=== PATIENT | female | born 1965 | race Caucasian/White ===

== ENCOUNTER → 2017-03-20 | Day surgery (SDC) | payer BC ==
[~2017-03-20] VITALS: Ht 165.1 cm; Wt 102.1 kg
[~2017-03-20] MED LIST: BACITRACIN PWD 50,000 UNITS VIAL As Ordered ONE; BENI20TA18 PO; BUPIVACAINE HCL 0.5% 30 ML VIAL As Ordered ONE; HYDROmorphone HCL 1 MG/ML SYRINGE (J1170) IV PRN; LIDO5TD TD; LIDOCAINE 1% SDV 5 ML VIAL SQ ONE; LIDOCAINE 2% INJ 100 MG/5 ML SDV (FOR ANES.) As Ordered ONE; LIDOCAINE 2% MDV 20 ML VIAL As Ordered ONE; LIPI20TA PO; LR 1,000 ML IV ONE; LR 1,000 ML IV SCH; METO-346 PO; MIDAZOLAM INJ 2 MG/2 ML VIAL (J2250) As Ordered ONE; NEOSPORIN GU IRRIG 20 ML VIAL As Ordered ONE; ONDANSETRON 4MG/2ML VIAL (J2405) As Ordered ONE; ONDANSETRON 4MG/2ML VIAL (J2405) IV PRN; PERCOCET 5MG/325MG TAB As Ordered ONE; PERCOCET 5MG/325MG TAB PO PRN; PROPOFOL 200 MG/20 ML VIAL As Ordered ONE; PROT1TAB2 PO; TIZA4CAP3 PO; dexameTHASONE 4 MG/ML 1ML VIAL (J1100) As Ordered ONE; fentaNYL 100 MCG/2 ML INJECTION (J3010) As Ordered ONE; fentaNYL 100 MCG/2 ML INJECTION (J3010) IV PRN
--- NOTE | 2017-03-20 13:31 | REP ---
Clinical: Postoperative baseline assessment. Technique: AP, lateral, oblique views of the right foot. Findings: Postoperative fixation noted at the first tarsometatarsal joint. Overlying postsurgical changes noted. Impression: Status post fixation at the first tarsometatarsal joint. Signed by Keenan Davidson MD 03/20/2017 01:23 P
[2017-03-20 13:50] VITALS: BP 122/60
--- NOTE | 2017-03-21 08:04 | RO ---
DATE OF PROCEDURE: 03/20/2017 PREPROCEDURE DIAGNOSIS: Hallux valgus deformity right foot. POSTPROCEDURE DIAGNOSIS: Hallux valgus deformity right foot. PROCEDURE: Lapidus bunionectomy with screw and plate fixation. SURGEON: Ty Linder DPM MASTER FIRE CONTROL TECHNICIAN: None. ANESTHESIA: Local MAC. IRRIGATION: Dilute bacitracin, neomycin and polymyxin B solution. IMPLANTS: Progenics putty 0.5 mL of demineralized bone matrix and plate and screw fixation, a Munoz Lapidus size 0 plate with nonlocking screw configuration 3.5 x 16, 18, 20 and 22 mm and a compression screw 3.5 x 40 mm. HEMOSTASIS: Ankle pneumatic tourniquet at 250 mmHg for 72 minutes. DESCRIPTION OF OPERATION: On 03/20/2017, this 51-year-old white female was taken from her hospital room to the operating room and placed on the operating room table in the supine position. Following the induction of IV sedation and local and regional anesthesia, the right lower extremity was prepped and draped in the usual aseptic manner. Ankle pneumatic tourniquet was rapidly inflated and the right lower extremity was returned to the operating table, sterile draping was completed and the following procedure was performed: LAPIDUS BUNIONECTOMY WITH PLATE AND SCREW FIXATION RIGHT FOOT: Attention was directed to the patient's right foot where there was noted to be a hallux valgus deformity. At this time, an incision was made just proximal to the first metatarsal cuneiform joint to just distal to the first metatarsal phalangeal joint dorsally and medial to the extensor tendon. The incision was deepened through subcutaneous tissues and all coursing venous tributaries were identified, underscored, clamped, cut, ligated and electrocoagulated as necessary. A linear capsulotomy was performed over the first metatarsal phalangeal joint of the right foot and the capsule and periosteal type envelope was created over the first metatarsal phalangeal joint. The medial eminence was osteotomized from distal to proximal through and through. Attention was directed into first intermetatarsal space where dissection was carried to release the conjoined tendon off the fibular sesamoid. Attention was then directed to the base of the first metatarsal where a wedged shaped piece of bone was removed from the first metatarsal cuneiform joint in two planes, one the wedge was directed in a lateral direction to decrease the intermetatarsal angle and in a plantar direction to plantar flex the first metatarsal segment. This wedge of bone was then removed from the joint surface. The bone was then fenestrated with a #2-0 drill bit and 0.5 mL of demineralized bone matrix was then placed at the fusion site. The fusion site was temporarily fixated with a 1.1 K-wire. Intraoperative C-arm images revealed a good reduction of the intermetatarsal angle and good position at the fusion site. A compression screw was then placed 3.5 x 40 mm across the fusion site with good compression at the site and good reduction of the intermetatarsal angle. The medial LPS size 0 plate was then placed and four fixation screws were added to the plate after the plate was contoured, 3.5 x 16, 18, 20 and 22 mm. Stable construct was noted. The wound was flushed with copious amounts of dilute bacitracin, neomycin and polymyxin B solution. Attention was then directed towards closure where the periosteal and capsular structures were coapted and maintained utilizing #2-0 Monocryl in a simple interrupted type fashion. Subcutaneous tissue coapted and maintained utilizing #4-0 Monocryl in a simple interrupted type fashion. Skin incision coapted and maintained utilizing #4-0 Prolene in a simple interrupted and horizontal mattress type fashion. Following the completion of the surgical procedure, 4 mg of dexamethasone sodium phosphate was instilled into the first intermetatarsal space. Attention was directed towards bandaging where a sterile compressive bandage was applied consisting of Adaptic, 4x4s, 4x4 splints, Edwar, Kerlix, Epstein compression dressing and a posterior splint. The ankle pneumatic tourniquet was then rapidly deflated and instantaneous capillary filling time was noted to digits of 1 through 5 of the patient's right foot. The patient having apparently tolerated the surgical procedure well was taken from the operating room (OR) to the recovery room with vital signs stable and the patient afebrile for further monitoring by the anesthesia department. All surgical specimens removed during the operative procedure were sent to pathology for gross and microscopic examination. Postoperative instructions will be given upon discharge.
== END ==
LOC: M SDC 08:43
PROVIDERS: ATTEND Podiatrist
DX: M20.11 Hallux valgus (acquired), right foot (principal); M79.671 Pain in right foot; I10 Essential (primary) hypertension; K21.9 Gastro-esophageal reflux disease without esophagitis; M51.9 Unspecified thoracic, thoracolumbar and lumbosacral intervertebral disc disorder; E78.5 Hyperlipidemia, unspecified; G47.00 Insomnia, unspecified; G56.31 Lesion of radial nerve, right upper limb; Z79.899 Other long term (current) drug therapy; Z88.8 Allergy status to other drugs, medicaments and biological substances
CPT/HCPCS: 28297; 73630; 88300; 97116; C1776; J0690; J1100; J2250; J2405; J3010

== ENCOUNTER 2018-02-27 07:19 | Day surgery (SDC) | payer MEDICARE, OTHER ==
[2018-02-27] MEDS: LR 1,000 ML IV ×2 (08:20)
[2018-02-27 08:25] LABS: CONTROL LINE HCG INT CTR LINE PRESENT; HCG, SERUM QUALITATIVE NEGATIVE (NEGATIVE)
[2018-02-27] MEDS: BUPIVACAINE HCL 0.5% 30 ML VIAL As Ordered ×2 (09:09)
[2018-02-27] MEDS: LIDOCAINE 2% MDV 20 ML VIAL As Ordered ×2 (09:09)
[2018-02-27] MEDS ORDERED: MIDAZOLAM INJ 2 MG/2 ML VIAL (J2250) As Ordered ×4 (09:21→09:25)
[2018-02-27] MEDS ORDERED: ONDANSETRON 4MG/2ML VIAL (J2405) As Ordered ×2 (09:21)
[2018-02-27] MEDS ORDERED: fentaNYL 100 MCG/2 ML INJECTION (J3010) As Ordered ×2 (09:21)
[2018-02-27] MEDS ORDERED: LIDOCAINE 2% INJ 100 MG/5 ML SDV (FOR ANES.) As Ordered ×2 (09:21)
[2018-02-27] MEDS ORDERED: PROPOFOL 200 MG/20 ML VIAL As Ordered ×12 (09:21→10:48)
[2018-02-27] MEDS ORDERED: BUPIVACAINE HCL 0.5% 30 ML VIAL As Ordered ×2 (09:29)
[2018-02-27] MEDS: BACITRACIN PWD 50,000 UNITS VIAL As Ordered ×2 (09:32)
[2018-02-27] MEDS ORDERED: KETAMINE HCL 200 MG/20 ML VIAL As Ordered ×2 (09:32)
[2018-02-27] MEDS: NEOSPORIN GU IRRIG 20 ML VIAL As Ordered ×2 (09:33)
[2018-02-27] MEDS: dexameTHASONE 4 MG/ML 1ML VIAL (J1100) As Ordered ×2 (09:34)
[2018-02-27] MEDS ORDERED: ePHEDrine SULFATE 25 MG/5 ML(5MG/ML) SYRINGE As Ordered ×2 (09:44)
[2018-02-27] MEDS ORDERED: ONDANSETRON 4MG/2ML VIAL (J2405) IV ×2 (11:30)
[2018-02-27] MEDS ORDERED: LR 1,000 ML IV ×2 (11:30)
[2018-02-27] MEDS ORDERED: fentaNYL 100 MCG/2 ML INJECTION (J3010) IV ×2 (11:30)
[2018-02-27] MEDS ORDERED: PERCOCET 5MG/325MG TAB PO ×2 (11:30)
[2018-02-27] MEDS ORDERED: HYDROMORPHONE HCL 0.5 MG/ 0.5 ML SYRINGE (J1170 PER 1) IV ×2 (11:30)
== END 2018-02-27 12:43 | disposition home or self-care (01) ==
LOC: M SDC 07:19
DX: M20.12 Hallux valgus (acquired), left foot (principal); I10 Essential (primary) hypertension; K21.9 Gastro-esophageal reflux disease without esophagitis; Z79.899 Other long term (current) drug therapy
CPT/HCPCS: 28297

== ENCOUNTER → 2019-03-11 | Outpatient (CLI) | payer MEDICARE ==
[~2019-03-11] MED LIST changes: -BACITRACIN PWD 50,000 UNITS VIAL As Ordered ONE; -BUPIVACAINE HCL 0.5% 30 ML VIAL As Ordered ONE; -HYDROmorphone HCL 1 MG/ML SYRINGE (J1170) IV PRN; -LIDOCAINE 1% SDV 5 ML VIAL SQ ONE; -LIDOCAINE 2% INJ 100 MG/5 ML SDV (FOR ANES.) As Ordered ONE; -LIDOCAINE 2% MDV 20 ML VIAL As Ordered ONE; -LR 1,000 ML IV ONE; -LR 1,000 ML IV SCH; -MIDAZOLAM INJ 2 MG/2 ML VIAL (J2250) As Ordered ONE; -NEOSPORIN GU IRRIG 20 ML VIAL As Ordered ONE; +OLMESARTAN-HCTZ PO; -ONDANSETRON 4MG/2ML VIAL (J2405) As Ordered ONE; -ONDANSETRON 4MG/2ML VIAL (J2405) IV PRN; -PERCOCET 5MG/325MG TAB As Ordered ONE; -PERCOCET 5MG/325MG TAB PO PRN; -PROPOFOL 200 MG/20 ML VIAL As Ordered ONE; +TIZA4CAP PO; -TIZA4CAP3 PO; +TOPI50TA9 PO; -dexameTHASONE 4 MG/ML 1ML VIAL (J1100) As Ordered ONE; -fentaNYL 100 MCG/2 ML INJECTION (J3010) As Ordered ONE; -fentaNYL 100 MCG/2 ML INJECTION (J3010) IV PRN
--- NOTE | 2019-03-14 11:25 | RADONC ---
RADIATION ONCOLOGY CONSULTATION NOTE DATE: 03/11/2019 CHART NUMBER: [id number] DIAGNOSIS: Right breast cancer. STAGE: 0, [id number]. ECOG performance status: 0 CONSULTATION NOTE: Ms. 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 HISTORY OF PRESENT ILLNESS: The patient was in the usual state of health until screening mammography was done on 12/23/2018. This showed an area of microcalcifications in the 9 o'clock position near the retro alveolar complex. On 02/04/2019 the patient underwent a biopsy of that area and pathology revealed a moderately differentiated ductal carcinoma in situ. The tumor was estrogen receptor and progesterone receptor positive. The patient was subsequently seen by her surgeon Dr. Ramirez as well as a radiation oncologist, Priscila Frank MD, who discussed her various options and have recommended lumpectomy followed by whole breast postoperative radiation therapy. PAST MEDICAL HISTORY: The patient's past medical history is positive for depression, anxiety, GERD, hyperlipidemia, pulmonary embolism and hypertension. The patient had a tubal ligation in 1993. She has had a humeral fracture on the right side as well as a wrist fracture and surgery on the right. She has had a bilateral hip fracture surgeries. ALLERGIES: The patient has no known drug allergies. SOCIAL HISTORY: The patient had does not smoke cigarettes. She does not abuse alcohol. FAMILY HISTORY: The patient's family history is positive for paternal aunt with breast cancer. REVIEW OF SYSTEMS: The patient's review of systems is noncontributory. She denies nausea, vomiting, fevers, chills, night sweats, diplopia, headaches, anxiety or depression, anorexia, weight loss, visual disturbances, chest pain, urinary or bowel difficulties, bone pain, or neurological problems. PHYSICAL EXAMINATION: The patient is a well-developed, well-nourished white female in no acute distress. HEENT exam is normocephalic, atraumatic. Extraocular movements are intact. There is no palpable cervical, supraclavicular, infraclavicular, axillary, or inguinal lymphadenopathy present. Lungs are clear to auscultation and percussion. Heart has a regular rate and rhythm. Abdomen is benign with no hepatosplenomegaly, masses, or tenderness. Breast examination reveals no masses or discharge bilaterally. Skeletal examination reveals no tenderness to pressure or percussion of the bony skeleton. Extremities reveal no clubbing, cyanosis, or edema. Neurologic exam is grossly intact, as is the remainder of the physical examination. ASSESSMENT: Clearly the patient is a candidate for external beam radiation therapy and I have so informed her. I have let her know that I agree with both her previous surgical consultations and I have total confidence in both Dr. Frank and Dr. Ramirez. I reviewed their consultation recommendations with this patient and again confirmed that I am in total agreement with there overall assessments. I have also let her know that I have worked closely with these physicians in the past and I am more than happy to participate in her care. The patient reports that she is scheduled for her lumpectomy tomorrow. In light of this I am scheduling her to be seen by us again in approximately three weeks' time for reevaluation, simulation and subsequent treatment planning. I have given the patient my cell phone number as well as office number and asked her feel free and contact me anytime if she can think of any questions whatsoever. We are more than happy to make ourselves available to this very pleasant woman. Thank you for allowing us to participate in the care of Ms. Buchanan. If I could be of any further assistance or provide you with any information, please feel free to contact me anytime. As always, warm regards,
== END ==
LOC: M ONCR 09:56
PROVIDERS: ATTEND Radiology Radiation Oncology
DX: C50.211 Malignant neoplasm of upper-inner quadrant of right female breast (principal)
CPT/HCPCS: G0463 ×2

== ENCOUNTER → 2019-04-01 | Outpatient (CLI) | payer MEDICARE ==
[2019-04-01 10:09] LABS: HEMATOCRIT 38.6 % (36.0-47.0); HEMOGLOBIN 12.9 g/dl (12.0-15.5); LYMPH % 30.8 % (24.0-44.0); MEAN CORPUSCULAR HEMOGLOBIN 32.4 pg (27.0-33.0); MEAN CORPUSCULAR HGB CONC 33.4 g/dl (32.0-36.5); NEUTROPHILS # 3.3 10^3/uL (1.8-7.7); NEUTROPHILS % 60.5 % (36.0-66.0); RED BLOOD COUNT 3.98 10^6/uL (4.00-5.40); WHITE BLOOD COUNT 5.5 10^3/uL (4.0-10.0)
== END ==
LOC: M ONCR 08:11
PROVIDERS: ATTEND Radiology Radiation Oncology
DX: D05.11 Intraductal carcinoma in situ of right breast (principal)
CPT/HCPCS: 36415; 85027; G0463

== ENCOUNTER → 2019-04-21 | Outpatient (RCR) | payer MEDICARE ==
--- NOTE | 2019-04-02 10:49 | RADONC ---
RADIATION ONCOLOGY SIMULATION NOTE DATE: 04/01/2019 CHART NUMBER: [id number] SIMULATION NOTE: Ms. Buchanan was taken to the CT scan for CT simulation of her right breast field. CT was accomplished without difficulty or discomfort. Radiation treatment planning is underway and radiation treatments will begin subsequently. An immobilization device was created without difficulty or discomfort. It will be used throughout the course of treatment. I was physically present throughout the course of CT simulation. Prior to simulation, evaluated the patient's surgical scar. It appears to be healing nicely. We are planning on completing treatment planning and beginning treatment approximately Friday or next week to allow for a little further healing. That would be 4 weeks post surgery and she should be able to initiate treatment at that point without difficulty.
--- NOTE | 2019-04-20 08:07 | RADONC ---
RADIATION ONCOLOGY PROGRESS NOTE DATE: 04/19/2019 CHART #: [id number] Ms. Buchanan is presently at a dose of 900 cGy to her right breast and is tolerating treatments quite well at this point with no complaints related to her radiation therapy. She is having no breast or bone pain. REVIEW OF SYSTEMS: The patient's review of systems is noncontributory. Denies nausea, vomiting, fevers, chills, night sweats, diplopia, headaches, anxiety or depression, anorexia, weight loss, visual disturbances, chest pain, urinary or bowel difficulties, bone pain, or neurological problems. PHYSICAL EXAMINATION: The patient's skin is in good condition with no evidence of moist or dry desquamation. The remainder of her physical exam remains unchanged. Ms. Buchanan is tolerating treatments quite well and radiation will continue as scheduled.
[~2019-04-21] MED LIST changes: +SILV40CR EXT
== END ==
LOC: M ONCR 04-01 08:40
PROVIDERS: ATTEND Radiology Radiation Oncology
DX: D05.11 Intraductal carcinoma in situ of right breast (principal)

== ENCOUNTER 2019-05-21 08:30 | Outpatient (RCR) | payer MEDICARE ==
--- NOTE | 2019-04-28 09:41 | RADONC ---
RADIATION ONCOLOGY PROGRESS NOTE DATE: 04/27/2019 CHART NUMBER: [id number] Ms. Buchanan, with a diagnosis of ductal carcinoma in situ involving the right breast, is currently receiving local regional radiotherapy. She is tolerating her radiation reasonably well with no specific complaints referable to her disease or to her treatments. REVIEW OF SYSTEMS: She denies any nausea, vomiting, coughing, sputum production or hemoptysis. Her energy level is satisfactory and she is able to maintain most of her day-to-day activities without any alteration of her lifestyle. Skin irritation is denied. EXAMINATION FINDINGS: Skin within the irradiated volume shows neither erythema nor desquamation. Lymphatics: No palpable peripheral lymphadenopathy is appreciated. Lungs are clear. The remainder of the physical examination is unchanged. IMPRESSION: Tolerating therapy well. PLAN: Treatments to continue. MTDD
--- NOTE | 2019-05-04 16:20 | RADONC ---
RADIATION ONCOLOGY PROGRESS NOTE DATE: 05/03/2019 CHART NUMBER: [id number] PROGRESS NOTE: Mrs. Buchanan is currently receiving local regional radiotherapy and her dose to date is 2340 cGy of an anticipated 4860 cGy with a presumed boost plan to the scar site thereafter. She has no specific complaints referable to her disease or to her treatments. REVIEW OF SYSTEMS: She specifically denies any nausea, vomiting, coughing, sputum production, hemoptysis. Her energy level is such that she is able to maintain most of her day-to-day activities without any alteration of her lifestyle. Skin irritation is not appreciated. The remainder of the review of systems is unchanged. EXAMINATION FINDINGS: The skin within the irradiated volume shows neither erythema nor desquamation. Lymphatics: No palpable peripheral lymphadenopathy is appreciated in the cervical, supraclavicular, axillary, or inguinal lymph node chains. Lungs are clear. The remainder of the physical examination is unchanged. IMPRESSION: Tolerating therapy well. PLAN: Treatments to continue.
--- NOTE | 2019-05-12 14:30 | RADONC ---
RADIATION ONCOLOGY PROGRESS NOTE DATE: 05/10/2019 CHART NUMBER: [id number] PROGRESS NOTE: Ms. Buchanan is presently at a dose of 3240 cGy to her right breast and is tolerating treatments quite well at this point with no significant difficulties related to radiation therapy. She has no significant breast discomfort. REVIEW OF SYSTEMS: The patient's review of systems is noncontributory. Denies nausea, vomiting, fevers, chills, night sweats, diplopia, headaches, anxiety or depression, anorexia, weight loss, visual disturbances, chest pain, urinary or bowel difficulties, bone pain, or neurological problems. PHYSICAL EXAMINATION: The patient's skin is in good condition with no evidence of moist or dry desquamation. The remainder of her physical exam remains unchanged. Ms. Buchanan is tolerating treatments quite well and radiation will continue as scheduled.
--- NOTE | 2019-05-19 06:09 | RADONC ---
RADIATION ONCOLOGY PROGRESS NOTE DATE: 05/17/2019 CHART #: [id number] Ms. Buchanan is presently at a dose of 4140 cGy to her right breast and is tolerating treatments quite well at this point with no significant difficulties related to her radiation therapy other than some tenderness in the axillary region. REVIEW OF SYSTEMS The patient's review of systems is positive for some axillary tenderness but is otherwise noncontributory. Denies nausea, vomiting, fevers, chills, night sweats, diplopia, headaches, anxiety or depression, anorexia, weight loss, visual disturbances, chest pain, urinary or bowel difficulties, bone pain, or neurological problems. PHYSICAL EXAMINATION: The patient's skin is in good condition with a small area of dry desquamation in the axillary region. The remainder of the skin shows some erythema and tanning present. The remainder of her physical exam is unchanged. Ms. Buchanan is tolerating treatments quite well and radiation will continue as scheduled.
--- NOTE | 2019-05-19 16:23 | RADONC ---
RADIATION ONCOLOGY SIMULATION NOTE DATE: 05/18/2018 CHART NUMBER: [id number] SIMULATION NOTE: Ms. Buchanan was taken to the linear accelerator today for clinical setup of her electron beam boost field. Setup was accomplished without difficulty or discomfort. Radiation treatment planning is underway and radiation treatments will begin subsequently. An immobilization device was created and will be used throughout the course of treatment. It was created without difficulty or discomfort. I was physically present throughout the course of clinical simulation.
== END 2019-05-22 ==
LOC: M ONCR 08:30
PROVIDERS: ATTEND Radiology Radiation Oncology
DX: D05.11 Intraductal carcinoma in situ of right breast (principal)

== ENCOUNTER 2019-06-01 08:30 | Outpatient (RCR) | payer MEDICARE ==
--- NOTE | 2019-05-26 08:13 | RADONC ---
RADIATION ONCOLOGY PROGRESS NOTE DATE: 05/25/2019 CHART #: [id number] Mrs. Buchanan with a diagnosis of DCIS is currently undergoing radiotherapy. Her electron boost field was started today without significant complications. She does have a brisk moderate erythematous blush throughout the breast, but most predominantly noted in the inframammary fold and in the upper outer quadrant of the right breast. She uses Silvadene fairly religiously. She denies any other untoward effects such as nausea, vomiting or fevers. REVIEW OF SYSTEMS: The remainder of review of systems is unchanged and primarily related to her skin as described above. EXAMINATION FINDINGS: The patient shows evidence of brisk erythematous changes involving the right breast. most prominent in the inframammary fold and the right upper outer quadrant. There is no confluent desquamation, but significant erythema. The remainder of the physical examination is unchanged. IMPRESSION: Tolerating therapy well. PLAN: Treatments to continue. MTDD
--- NOTE | 2019-05-31 16:13 | RADONC ---
RADIATION ONCOLOGY THERAPY TREATMENT SUMMARY DATE: 05/31/2019 (This is for 06/01/2019 radiation therapy treatment summary.) CHART NUMBER: [id number] DIAGNOSIS: Right breast cancer. Stage: 0, [id number] ECOG PERFORMANCE STATUS: 0 PLAN OF RADIOTHERAPY: Adjuvant local regional radiotherapy via a breast conservation radiotherapy technique. DATE RADIOTHERAPY STARTED: 04/13/2019 DATE RADIOTHERAPY COMPLETED: 06/01/2019 DOSE: The patient received an initial 27 treatments or 4860 cGy directed to the entire breast in 27 fractions over 35 elapsed days. Prior to treatment delivery localization was accomplished upon our CT simulator and treatment portals determined by the use of multileaf collimators. A 3-D conformal radiotherapy technique was employed for treatment delivery. Thereafter, she received an additional 1200 cGy to the lumpectomy scar site via an energetic electron beam. She received this treatment in six fractions over eight elapsed days. A 16 MeV electron beam was utilized for treatment delivery to the lumpectomy scar site where as a combination of a 6 and 10 photon beam was utilized for treatment delivery to the entire breast via a 3-D conformal radiotherapy technique. STATUS OF TUMOR: There was no evidence of local regional recurrence nor was there clinical evidence of distant metastatic spread during her course of radiotherapy. Tolerance in general treatments were relatively well tolerated. She did experience the anticipated marked erythema of the skin, which was somewhat uncomfortable to her. However, this skin reaction healed relatively well with conservative management. DISPOSITION: Return to clinic in 1 month for post radiotherapy followup visit and skin check, and she was advised to return to her referring physicians as per their directions and instructions. Thank you for referring this very seth lady to us and allowing us the opportunity of participation in her overall management. cc: Joann Villalba NP
== END 2019-06-21 ==
LOC: M ONCR 08:30
PROVIDERS: ATTEND Radiology Radiation Oncology
DX: D05.11 Intraductal carcinoma in situ of right breast (principal)

== ENCOUNTER → 2019-06-30 | Outpatient (CLI) | payer MEDICARE ==
--- NOTE | 2019-07-01 07:37 | RADONC ---
RADIATION ONCOLOGY FOLLOWUP NOTE DATE: 06/30/2019 CHART NUMBER: [id number] DIAGNOSIS: Right breast cancer. STAGE: 0, [id number]. ECOG PERFORMANCE STATUS: 0. FOLLOWUP NOTE: Ms. Buchanan is a very pleasant 53-year-old white female with the diagnosis of a stage 0, [id number], ductal carcinoma in situ right breast who is presenting to us today for routine followup visit 1 month post completion of external beam radiation therapy. The patient presents today reporting that she is doing quite well with no complaints at this time related to her radiation therapy or disease. She has no breast or bone pain. The patient's review of systems is noncontributory. She denies nausea, vomiting, fevers, chills, night sweats, diplopia, headaches, anxiety or depression, anorexia, weight loss, visual disturbances, chest pain, urinary or bowel difficulties, bone pain, or neurological problems. PHYSICAL EXAMINATION: The patient is a well-developed, well-nourished, female in no acute distress. HEENT exam is normocephalic, atraumatic. Extraocular movements are intact. There is no palpable cervical, supraclavicular, infraclavicular, axillary, or inguinal lymphadenopathy present. Lungs are clear to auscultation and percussion. Heart has a regular rate and rhythm. Abdomen is benign with no hepatosplenomegaly, masses, or tenderness. Breast examination reveals no masses or discharge bilaterally. Skeletal examination reveals no tenderness to pressure or percussion of the bony skeleton. Extremities reveal no clubbing, cyanosis, or edema. Neurologic exam is grossly intact, as is the remainder of the physical examination. ASSESSMENT: The patient is clinically WILIAM at this time. She is continuing for close followup with her medical oncologist as well as surgeon and other physicians. In light of this I am discharging her except on a as needed basis. cc: MD Poonam Sanchez MD Steven Lyndaker, MD
== END ==
LOC: M ONCR 09:22
PROVIDERS: ATTEND Radiology Radiation Oncology
DX: D05.11 Intraductal carcinoma in situ of right breast (principal)

== ENCOUNTER → 2021-04-17 | Outpatient (REF) | payer MEDICARE | LOC: M SFHCWAGY 13:16 | PROVIDERS: ATTEND Advanced Practice Midwife | DX: Z12.4 Encounter for screening for malignant neoplasm of cervix (principal) | CPT/HCPCS: G0123; G0463 ==